=== PATIENT | female | born 2005 | race Caucasian/White ===

== ENCOUNTER 2023-11-27 09:29 | Emergency (ER) | payer OTHER, SELFPAY ==
[2023-11-27 09:58] VITALS: BP 116/76
[2023-11-27 12:00] VITALS: BP 119/70
[2023-11-27 12:22] VITALS: BMI 22.0
--- NOTE | 2023-11-27 12:36 | ED.GENMED ---
History of Present Illness
General
Chief Complaint: Chest Pain
Source: patient
Exam Limitations: none
Time Seen by Provider: 11/27/23 11:43
Nursing documentation reviewed up to this point in time: agreed with
History of Present Illness
History of Present Illness:
18 y/o F with h/o anxiety
says that she hash ad URI sxs x 3-4 days, maybe low grade fever, sore throat, cough
but then last night around 8 pm noticed she felt alittle short of breath and pain with breathing
she didn't sleep well
she feels anxious now but that is not unusual for her
recent long travel to [place] and back 2 weeks ago
no h/o dvt/pe
no OCPs
she feels her cough and cold symptom have improved
she took dayquil and nyquil yesterday
Past History
Past History
ED Past Medical History: Psychiatric
ED Past Surgical History: None
Social History
Tobacco: Non-smoker
Alcohol: None
Drug: None
Personal: Single
Living: with family
Employment: Student
Review of Systems
Review of Systems
Allergies reviewed?: Yes
All Other Systems: Not applicable
Phy Exam
Physical Exam
Physical Exam:
GENERAL: Alert anxious
EYE: pupils equal and reactive
NECK: Supple
ENT: o/p clr, mmm.
CARDIAC: tachycardic mildly
no murmur
LUNGS: Clear breath sounds bilaterally, no acute respiratory distress, no wheezes/rales/rhonchi
ABDOMEN: Soft, without focal tenderness, no r/g, no cvat, normal bowel sounds
NEUROLOGICAL: Alert and oriented, no focal neuro deficits
SKIN: Warm and dry, skin intact.
MUSCULOSKELETAL: No edema, well perfused. neg neo's sign
PSYCH: mildly anxious
Scores
Heart Score for Chest Pain Patients
STEMI patient?: No
History: Slightly or Non-Suspicious
ECG: Normal
Age: </= 45 years
Risk Factors: No Risk Factors
Troponin: </= Normal Limit
Heart Score for Chest Pain Patients: 0
Heart Score Risk: 2.5% MACE over next 6 weeks
Course
Orders/Labs/Results
Orders:
Orders
11/27/23 11:41
EKG [Electrocardiogram (*1)] Urgent
Reason for Study: Chest Pain
11/27/23 11:42
EKG- Treatment ONCE
11/27/23 12:37
Test Result ONCE
11/27/23 12:48
TSH Urgent
11/27/23 14:36
Complete Blood Count/With Diff Urgent
Comprehensive Metabolic Panel Urgent
D-Dimer Urgent
HCG, Serum Qualitative Screen Urgent
Lipase Urgent
11/27/23 14:37
Troponin I Urgent
11/27/23 15:37
COVID-19 Antigen Urgent
Source: Nasal Swab
11/27/23 15:40
CR Chest - 2 Views Urgent
Comment:
Reason For Exam: uri sxs x 4 days, chest pain/sob
Abnormal Lab Results
11/27/23
14:36
Hct 36.3 L %
(37.0-47.0)
MPV 10.8 H fL
(7.4-10.4)
Chloride 109 H mmol/L
(98-107)
Carbon Dioxide 20 L mmol/L
(22-30)
BUN 18 H mg/dl
(7-17)
11/27/23 14:36
11/27/23 14:36
Vital Signs
Initial and Last Documented VS:
Initial Vital Signs
Temp Pulse Resp BP Pulse Ox
99.2 F 108 16 116/76 95
11/27/23 09:58 11/27/23 09:58 11/27/23 09:58 11/27/23 09:58 11/27/23 09:58
Last Documented Vital Signs
Temp Pulse Resp BP Pulse Ox
98.1 F 95 18 111/80 99
11/27/23 14:00 11/27/23 16:00 11/27/23 16:00 11/27/23 16:00 11/27/23 16:00
MDM/Problems Addressed
Differential Diagnosis Includes:
PE, myocarditis, iral uri, pneumonia, chest wall pain, gerd
MDM/Problems Addressed:
18 yo F with ho anxiety
here with chest pain pleuritic with midl sob since lastnight
does have h/o anxiety but isn't overly stressed about antyhing in particular other than being in the ER for the first time
had uri sxs 3-4 days ago that seem to be improving
no heomptyiss
but recent long travelt o and from [place]
on exam pt mildly tachy, which worsens when we are in the room, c/w anxiety
low grade temp
clear lungs
no distress
no murmur
no signs of dvt
suspect MSK pain with anxiety in setting of URI but will w/u with labs and ekg and trop and ddimer
all of which unremarkable
chest xray indep reviewed neg
normal pulse ox
d/c home nsaids for chest pain
uri supportive care
no need for abx.
d dimer neg.
*Critical Care Note
Total Time (30-74mins, 75-104mins- exclusive of procedures): Not Applicable
ED Attending Note
-
Portions of this chart may have been created with voice recognition software.� Occasional wrong word or��sound alike� substitutions may have occurred due to the inherent limitations of voice recognition software.
Discharge Plan
Departure
Patient Disposition: Home (Routine Discharge)
Date of Disposition: 11/27/23
Time of Disposition: 16:06
Patient with high blood pressure during this ER visit?: No
Condition: Fair
Covid-19: Not Applicable
Discharge Problem:
Acute upper respiratory infection, Chest pain
Instructions: Chest Pain That Is Not Caused by the Heart (DC), Upper Respiratory Infection ED
Referrals:
Myrna Cleveland CRNP [Family Provider] - Follow up in 2-3 days
Activity Restrictions/Additional Instructions:
Your workup is reassuring that this is not chest pain caused by your heart or a blood clot. Your blood work was unremarkable. Your chest x-ray showed no signs of pneumonia. You likely had a viral upper respiratory infection and could have some
inflammation. Try ibuprofen every 8 hours. If you are coughing you can try an [id number] cough suppressant. We can also use Mucinex if you are having some productivity of your cough\\
Follow-up with your family doctor this week. Return for any worsening symptoms like passing out, severe or worsening shortness of breath or chest pain, high fever, any concerns
Interventions
Interventions:
*Risk Screen - Suicide Last Done: 11/27/23 12:22
*General Assessment Last Done: 11/27/23 12:22
*Neglect/Abuse Screening Last Done: 11/27/23 13:00
ED- Fall Risk Assessment Last Done: 11/27/23 13:00
*ED COVID-19 Vaccine History Last Done: 11/27/23 12:22
*Nursing Disposition Last Done: 11/27/23 16:30
ED- Cardiac Assessment Last Done: 11/27/23 13:00
Discharge Date and Time
Discharge Date/Time: 11/27/23 16:35
Print Language: CROATIAN
[2023-11-27 14:00] VITALS: BP 109/71
[2023-11-27 14:11] LABS: TSH 0.82 uIU/ml (0.47-4.68)
[2023-11-27 14:45] LABS: % Basophils 0.4 % (0-2); % Eosinophils 0.5 % (0-6); % Immature Granulocytes 0.3 % (0-0.5); % Lymphocytes 24.7 % (20.5-51.1); % Monocytes 7.8 % (1.7-9.3); % Neutrophils 66.3 % (42.2-75.2); Absolute Lymphocytes 1.9 10^3/uL (1.2-3.4); Absolute Monocytes 0.6 10^3/uL (0.1-0.6); Absolute Neutrophils 5.1 10^3/uL (1.4-6.5); Hematocrit 36.3 % (37.0-47.0); Hemoglobin 12.7 g/dL (12.0-16.0); Mean Corpuscular Hgb 28.5 pg (27.0-31.0); Mean Corpuscular Volume 81.6 fL (81.0-99.0); Mean Platelet Volume 10.8 fL (7.4-10.4); Nucleated Red Blood Cells % 0 %; Platelet Count 211 10^3/uL (130-400); Red Blood Cell Count 4.45 10^6/uL (4.20-5.40); Red Cell Dist. Width 12.2 % (11.5-14.5); White Blood Cell Count 7.7 10^3/uL (4.8-10.8)
[2023-11-27 15:00] LABS: ALT (SGPT) 19 U/L (0-35); AST (SGOT) 21 U/L (14-36); Alkaline Phosphatase 59 U/L (38-126); Blood Urea Nitrogen 18 mg/dl (7-17); Calcium 10.1 mg/dl (8.4-10.2); Carbon Dioxide 20 mmol/L (22-30); Chloride 109 mmol/L (98-107); Estimated Creatinine Clearance 101 ml/min; Glucose 97 mg/dl (70-99); Lipase 37 U/L (23-300); Potassium 3.9 mmol/L (3.5-5.1); Sodium 139 mmol/L (135-145); Total Bilirubin 0.8 mg/dl (0.2-1.3); Total Protein 7.4 g/dl (6.3-8.2); eGFR > 60.00
[2023-11-27 15:06] LABS: HCG, Serum Qualitative Screen Negative
[2023-11-27 15:10] LABS: Troponin I < 0.012 ng/ml
[2023-11-27 15:38] LABS: D-Dimer < 0.27 ug/mlFEU (0.00-0.50)
[2023-11-27 16:00] VITALS: BP 111/80
[2023-11-27 16:18] LABS: COVID-19 Antigen Negative (Negative)
== END 2023-11-27 16:35 | disposition home or self-care (01) ==
LOC: EMR 09:29
PROVIDERS: Physician Assistant; EMERGENCY PHYSICIAN Emergency Medicine; FAMILY PHYSICIAN Nurse Practitioner Primary Care
DX: J06.9 Acute upper respiratory infection, unspecified (principal); R07.89 Other chest pain; F41.9 Anxiety disorder, unspecified; Z11.52 Encounter for screening for COVID-19
CPT/HCPCS: 99285; 71046; 80053; 83690; 84443; 84484; 84703; 85025; 85379; 87811; 93005